=== PATIENT | female | born 1960 | race Caucasian/White ===

== ENCOUNTER 2017-06-11 13:13 | Emergency (ER) | payer MEDICAID, SELFPAY ==
[~2017-06-11] VITALS: Ht 170.2 cm; Wt 65.6 kg
[2017-06-11 16:33] VITALS: BP 144/75
[2017-06-11] MEDS ORDERED: THYROID MED PO (16:41)
== END 2017-06-11 16:44 | disposition home or self-care (01) ==
LOC: ED 16:09
DX: S92.411A Displaced fracture of proximal phalanx of right great toe, initial encounter for closed fracture (principal); E03.9 Hypothyroidism, unspecified; I25.10 Atherosclerotic heart disease of native coronary artery without angina pectoris; W01.0XXA Fall on same level from slipping, tripping and stumbling without subsequent striking against object, initial encounter; Y93.89 Activity, other specified; Y92.009 Unspecified place in unspecified non-institutional (private) residence as the place of occurrence of the external cause; Y99.9 Unspecified external cause status
CPT/HCPCS: 29515; 99284

== ENCOUNTER 2017-08-13 09:48 | Emergency (ER) | payer MEDICAID ==
[~2017-08-13] VITALS: Ht 170.2 cm; Wt 66.5 kg
[~2017-08-13 09:48] MED LIST: THYROID MED PO
[2017-08-13] MEDS ORDERED: FLUO20CA19 PO (10:20)
[2017-08-13] MEDS ORDERED: HYDROcodone/APAP 5/325 TABLET PO ONE (11:00)
[2017-08-13] MEDS ORDERED: HYDROcodone/APAP 5/325 TABLET ONE (11:24)
[2017-08-13 12:19] VITALS: BP 145/70
== END 2017-08-13 12:26 | disposition home or self-care (01) ==
LOC: ED 10:36
DX: S60.221A Contusion of right hand, initial encounter (principal); E03.9 Hypothyroidism, unspecified; I25.10 Atherosclerotic heart disease of native coronary artery without angina pectoris; M81.0 Age-related osteoporosis without current pathological fracture; Z90.49 Acquired absence of other specified parts of digestive tract; W01.0XXA Fall on same level from slipping, tripping and stumbling without subsequent striking against object, initial encounter; Y93.89 Activity, other specified; Y99.8 Other external cause status; Y92.410 Unspecified street and highway as the place of occurrence of the external cause
CPT/HCPCS: 99284

== ENCOUNTER 2018-03-28 08:11 | Emergency (ER) | payer MEDICAID ==
[~2018-03-28] VITALS: Ht 170.2 cm; Wt 65.1 kg
[~2018-03-28 08:11] MED LIST changes: +FLUO20CA19 PO
[2018-03-28] MEDS ORDERED: METHOCARBAMOL 750 MG TABLET PO ONE (09:00)
[2018-03-28] MEDS ORDERED: IBUPROFEN 200 MG TABLET PO ONE (09:00)
[2018-03-28] MEDS ORDERED: OXYcodone/APAP 5/325MG TABLET PO ONE (09:00)
[2018-03-28] MEDS ORDERED: METHOCARBAMOL 750 MG TABLET ONE (09:12)
[2018-03-28] MEDS ORDERED: OXYcodone/APAP 5/325MG TABLET ONE (09:13)
[2018-03-28] MEDS ORDERED: IBUPROFEN 200 MG TABLET ONE (09:13)
[2018-03-28 10:29] VITALS: BP 128/74
== END 2018-03-28 10:32 | disposition home or self-care (01) ==
LOC: ED 08:38
DX: S22.081A Stable burst fracture of T11-T12 vertebra, initial encounter for closed fracture (principal); I25.10 Atherosclerotic heart disease of native coronary artery without angina pectoris; Z86.39 Personal history of other endocrine, nutritional and metabolic disease; Z90.89 Acquired absence of other organs; Z98.61 Coronary angioplasty status; W18.30XA Fall on same level, unspecified, initial encounter; Y93.89 Activity, other specified; Y99.8 Other external cause status; Y92.89 Other specified places as the place of occurrence of the external cause
CPT/HCPCS: 72110; 72220; 99284

== ENCOUNTER 2018-04-03 15:36 | Emergency (ER) | payer MEDICAID ==
[~2018-04-03] VITALS: Ht 170.2 cm; Wt 66.2 kg
[2018-04-03 15:44] VITALS: BP 165/83
[2018-04-03] MEDS ORDERED: HYDROmorphone 2 MG/ML, 1ML ONE (16:12)
[2018-04-03] MEDS ORDERED: ONDANSETRON ODT 4 MG ONE (16:13)
[2018-04-03] MEDS ORDERED: HYDROmorphone 2 MG/ML, 1ML IM ONE (16:30)
[2018-04-03] MEDS ORDERED: ONDANSETRON ODT 4 MG PO ONE (16:30)
== END 2018-04-03 17:21 | disposition home or self-care (01) ==
LOC: ED 17:17
DX: G89.29 Other chronic pain (principal); M54.5 Low back pain; F17.200 Nicotine dependence, unspecified, uncomplicated; E03.9 Hypothyroidism, unspecified; I25.10 Atherosclerotic heart disease of native coronary artery without angina pectoris
CPT/HCPCS: 96372; 99283; J1170; Q0162